=== PATIENT | male | born 1960 | race Caucasian/White ===

== ENCOUNTER → 2023-12-13 11:53 | Outpatient (REF) | payer OTHER, SELFPAY | LOC: RAD 11:53 | PROVIDERS: ATTENDING PHYSICIAN Family Medicine; REFERRING PHYSICIAN Urology | DX: I10 Essential (primary) hypertension (principal); Z87.39 Personal history of other diseases of the musculoskeletal system and connective tissue; R97.20 Elevated prostate specific antigen [PSA]; R79.89 Other specified abnormal findings of blood chemistry; R10.32 Left lower quadrant pain | CPT/HCPCS: 74177; Q9967 ==

== ENCOUNTER → 2024-12-08 14:51 | Outpatient (REF) | payer MEDICARE, OTHER, SELFPAY | LOC: HWRAD 14:51 | PROVIDERS: ATTENDING PHYSICIAN Urology; FAMILY PHYSICIAN Family Medicine | DX: N20.0 Calculus of kidney (principal) | CPT/HCPCS: 76775 ==